=== PATIENT | female | born 1945 | race Caucasian/White ===

== ENCOUNTER 2017-09-12 07:12 | Emergency (ER) | payer MEDICARE, BC ==
[~2017-09-12] VITALS: Ht 175.3 cm; Wt 68.0 kg
[~2017-09-12 07:12] MED LIST: ASPI81TA82 PO; CALC600T44 PO; CRANCAP11 PO; FISH1200; LEVO.1 PO; MACR100C PO
[2017-09-12 07:17] VITALS: BP 186/82; PULSE 64; RESP 16; TEMP 97.6; O2SAT 100
[2017-09-12 07:43] LABS: BILIRUBIN, URINE NEG (NEG); BLOOD, URINE TRACE (NEG); GLUCOSE,URINE NEG (NEG); KETONE, URINE NEG (NEG); NITRITE,URINE NEG (NEG); URINE COLOR YELLOW (YELLW/STRAW); URINE LEUKOCYTE ESTERASE MOD (NEG)
[2017-09-12 07:50] LABS: RBC, URINE 0-3 /hpf (0-3); SQUAMOUS EPITHELIAL CELL URINE 0-5 /hpf (0-5); WBC, URINE 15-19 /hpf (0-5)
[2017-09-12] MEDS ORDERED: BACT800T5 PO (08:01)
--- NOTE | 2017-09-12 08:01 | PD ---
HPI Chief Complaint: Complaint Time Seen by Provider: 07:54 Travel History International Travel<30 days: No Contact w/Intl Traveler<30days: No Traveled to known affect area: No History of Present Illness HPI 72-year-old female complains of dysuria and frequency. Patient states the symptoms started several days ago. Patient states that she has mild aching low back pain and low abdominal pain. Patient denies any nausea vomiting diarrhea. Patient denied any vaginal discharge or bleeding. Patient denies any fever chills. PFSH Past Medical History Asthma: Yes Cardiovascular Problems: Yes (PERICARDITIS) Diminished Hearing: No Gastrointestinal Disorders: Yes (CELIAC DISEASE) Immunizations Current: Yes Thyroid Disease: Yes Dilation and Curettage (D&C): Yes Past Surgical History Other Surgery: Yes (UTERINE FIBROIDS REMOVED) Social History Alcohol Use: Yes (OCCASIONAL) Tobacco Use: No Substance Use: No Allergies-Medications (Allergen,Severity, Reaction): Coded Allergies: amoxicillin (Unverified Allergy, Severe, TONGUE SWELLING, 09/12/17) Reported Meds & Prescriptions Reported Meds & Active Scripts Active Macrobid (Nitrofurantoin Macrocrystals) 100 Mg Cap 100 Mg PO BID 7 Days Reported Cranberry (Cranberry-Vitamin C-Vitamin E) Cap 1 PO Aspir-81 (Aspirin) 81 Mg Tab 81 Mg PO DAILY Synthroid 100 mcg (Levothyroxine Sodium) 100 Mcg Tab 100 Mcg PO DAILY Calcium (Calcium Carbonate) 600 Mg Tab 600 Mg PO DAILY Fish Oil ([place]-3 Fatty Acids) 1,200 Mg Cap DAILY Review of Systems General / Constitutional: No: Fever Eyes: No: Visual changes HENT: No: Headaches Cardiovascular: No: Chest Pain or Discomfort Respiratory: No: Shortness of Breath Gastrointestinal: No: Abdominal Pain Genitourinary: Positive: Frequency, Dysuria Musculoskeletal: No: Pain Skin: No Rash Neurologic: No: Weakness Psychiatric: No: Depression Endocrine: No: Polydipsia Hematologic/Lymphatic: No: Easy Bruising Physical Exam Narrative GENERAL: Well-nourished, well-developed patient. SKIN: Focused skin assessment warm/dry. HEAD: Normocephalic. EYES: No scleral icterus. No injection or drainage. NECK: Supple, trachea midline. No JVD or lymphadenopathy. CARDIOVASCULAR: Regular rate and rhythm without murmurs, gallops, or rubs. RESPIRATORY: Breath sounds equal bilaterally. No accessory muscle use. GASTROINTESTINAL: Abdomen soft, non-tender, nondistended. MUSCULOSKELETAL: No cyanosis, or edema. BACK: Nontender without obvious deformity. No CVA tenderness. Neurologic exam normal. Data Data Last Documented VS Vital Signs Date Time Temp Pulse Resp B/P (MAP) Pulse Ox O2 Delivery O2 Flow Rate FiO2 09/12/17 07:17 97.6 64 16 186/82 (116) 100 Orders Orders Urinalysis - C+S If Indicated (09/12/17 07:20) Urine Culture (09/12/17 07:24) Labs Laboratory Tests Test 09/12/17 07:24 Urine Color YELLOW Urine Turbidity CLEAR Urine pH 7.0 Urine Specific [place] LESS/EQUAL 1.005 Urine Protein NEG mg/dL Urine Glucose (UA) NEG mg/dL Urine Ketones NEG mg/dL Urine Occult Blood TRACE Urine Nitrite NEG Urine Bilirubin NEG Urine Urobilinogen 0.2 MG/DL Urine Leukocyte Esterase MOD Urine RBC 0-3 /hpf Urine WBC 15-19 /hpf Urine Squamous Epithelial Cells 0-5 /hpf Microscopic Urinalysis Comment CULTURE INDICATED MDM Medical Decision Making Medical Screen Exam Complete: Yes Emergency Medical Condition: Yes Differential Diagnosis Differential diagnosis including urethritis, UTI, pyelonephritis, nephrolithiasis. Narrative Course 72-year-old female complains of dysuria or frequency. Diagnosis Primary Impression: UTI (urinary tract infection) Qualified Codes: N30.00 - Acute cystitis without hematuria Patient Instructions: General Instructions Additional Instructions: Bactrim DS as directed. Cranberry juice. Follow-up with personal physician. Return if worse. Med/Other Pt SpecificInfo: Prescription(s) given Scripts Sulfamethoxazole-Trimethoprim (Bactrim DS) 800-160 Mg Tab 1 TAB PO BID for Infection, #14 TAB 0 Refills Prov: Jorge A Cid MD 09/12/17 Disposition: 01 DISCHARGE HOME Condition: Stable Jorge A Cid MD Sep 12, 2017 08:01
== END 2017-09-12 08:29 | disposition home or self-care (01) ==
LOC: PHED 07:12
DX: N30.00 Acute cystitis without hematuria (principal); B96.1 Klebsiella pneumoniae [K. pneumoniae] as the cause of diseases classified elsewhere; J45.909 Unspecified asthma, uncomplicated; K90.0 Celiac disease; E07.9 Disorder of thyroid, unspecified; Z88.0 Allergy status to penicillin
CPT/HCPCS: 81001; 87077; 87086; 87186; 99283